=== PATIENT | female | born 1985 | race Caucasian/White ===

== ENCOUNTER 2025-08-08 17:28 | Emergency (ER) | payer OTHER ==
[~2025-08-08] VITALS: Ht 162.6 cm; Wt 70.1 kg
[2025-08-08 17:57] LABS: BASOPHILS 0.1 % (0.1-1.2); EOSINOPHILS 0 % (0.7-5.8); LYMPHOCYTES 7.2 % (19.3-51.7); MCH 33.4 PG (25.6-32.2); MCHC 34.8 g/dL (32.2-35.5); MCV 96.0 fL (79.4-94.8); MONOCYTES 8.0 % (4.7-12.5); NEUTROPHILS 84.5 % (34.0-71.1); RBC 4.28 M/uL (3.93-5.22)
[2025-08-08 18:21] LABS: INR 1.28 (0.80-1.30); PROTIME 15.2 Sec (11.2-14.2)
[2025-08-08 18:34] LABS: ALCOHOL, MEDICAL <3 ng/dL (<3); ALT (SGPT) 808 U/L (14-59); GLOMERULAR FILTRATION RATE,EST 113 mL/min (>60); PROTEIN, TOTAL 7.1 g/dL (6.4-8.2); TSH, 3RD GENERATION 1.978 uIU/mL (0.358-3.740); UREA NITROGEN 16 mg/dL (7-18)
[2025-08-08 18:35] LABS: AST (SGOT) 1419 U/L (15-37)
[2025-08-08 20:10] LABS: BLOOD/HGB, URINE NEGATIVE (Negative); KETONE, URINE SMALL (Negative); LEUK ESTERASE, URINE NEGATIVE (negative); NITRITE, URINE NEGATIVE (negative)
[2025-08-08 20:27] LABS: AMPHETAMINES, URINE NEGATIVE (NEGATIVE); BARBITURATES, URINE NEGATIVE (NEGATIVE); BENZODIAZEPINE, URINE NEGATIVE (NEGATIVE); CANNABINOID, URINE NEGATIVE (NEGATIVE); COCAINE, URINE NEGATIVE (NEGATIVE); ECSTASY, URINE NEGATIVE (NEGATIVE); FENTANYL, URINE NEGATIVE (NEGATIVE); METHADONE, URINE NEGATIVE (NEGATIVE); OPIATES, URINE NEGATIVE (NEGATIVE); OXYCODONE, URINE NEGATIVE (NEGATIVE); PHENCYCLIDINE, URINE NEGATIVE (NEGATIVE)
[2025-08-08 21:40] VITALS: BP 135/95
--- NOTE | 2025-08-09 22:16 | EKG ---
[facility] [address] [place] [address] Signed Normal sinus rhythm Normal ECG No previous ECGs available Confirmed by Tamera Bucio MD () on 08/09/2025 10:16:07 PM Electronically Signed By: TAMERA BUCIO MD 08/09/25 2216 PATIENT NAME: GIA KOVACS Electrocardiogram DATE OF : 85 PHYSICIAN: TAMERA BUCIO MD REPORT #: [id number] REPORT IS CONFIDENTIAL AND NOT TO BE RELEASED WITHOUT AUTHORIZATION
== END 2025-08-08 21:30 | disposition short-term general hospital (02) ==
LOC: ED 17:28
PROVIDERS: Emergency Medicine
DX: T39.1X1A Poisoning by 4-Aminophenol derivatives, accidental (unintentional), initial encounter (principal); D69.6 Thrombocytopenia, unspecified; R74.01 Elevation of levels of liver transaminase levels
CPT/HCPCS: 36415; 80053; 80307; 81003; 82550; 84443; 84703; 85025; 85060; 85610; 93005; 93010; 96365; 96366; 99285-25; G0480; J0132; J7060